=== PATIENT | male | born 1960 | race Caucasian/White ===

== ENCOUNTER 2016-12-16 13:58 | Emergency (ER) | payer OTHER ==
[~2016-12-16] VITALS: Ht 193 cm; Wt 101.4 kg
[2016-12-16] MEDS ORDERED: IBUP-1222 PO (14:27)
[2016-12-16] MEDS ORDERED: SODIUM CHLORIDE 0.9% 1,000ML IVBOLUS ONE (15:00)
[2016-12-16] MEDS ORDERED: SODIUM CHLORIDE FLUSH 10ML SYR IVF ONE (15:00)
[2016-12-16] MEDS ORDERED: VANCOMYCIN 2,000 MG in SODIUM CHLORIDE 0.9% 500 ML IV ONE (15:00)
[2016-12-16] MEDS ORDERED: VANCOMYCIN PER PHARMACY MC ONE (15:00)
[2016-12-16] MEDS ORDERED: KETOROLAC 30 MG/1 ML IVPush ONE (15:00)
[2016-12-16] MEDS ORDERED: KETOROLAC 30 MG/1 ML ONE (15:46)
[2016-12-16 16:01] LABS: BLOOD UREA NITROGEN 16 mg/dL (7-18)
[2016-12-16 17:38] VITALS: BP 140/86
== END 2016-12-16 17:41 | disposition home or self-care (01) ==
LOC: ED 16:28
DX: M71.162 Other infective bursitis, left knee (principal); F17.200 Nicotine dependence, unspecified, uncomplicated
CPT/HCPCS: 29505; 36415; 73564; 80048; 82040; 85025; 93971; 96365; 96366; 96375; 99285; J1885; J3370; J7030; J7040

== ENCOUNTER 2016-12-17 19:21 | Inpatient (IN) | payer OTHER ==
[~2016-12-17] VITALS: Ht 193 cm; Wt 110.0 kg
[~2016-12-17 19:21] MED LIST: IBUP-1222 PO
[2016-12-17] MEDS ORDERED: OXYcodone/APAP 5/325MG TABLET ONE (20:23)
[2016-12-17] MEDS ORDERED: LIDOCAINE 1%, 20ML ONE (20:23)
[2016-12-17] MEDS ORDERED: LIDOCAINE 1%, 20ML SQ ONE (20:30)
[2016-12-17] MEDS ORDERED: SODIUM CHLORIDE FLUSH 10ML SYR IVF ONE (20:30)
[2016-12-17] MEDS ORDERED: VANCOMYCIN PER PHARMACY IV ONE (20:30)
[2016-12-17] MEDS ORDERED: VANCOMYCIN 2,000 MG in SODIUM CHLORIDE 0.9% 500 ML IV ONE (20:30)
[2016-12-17] MEDS ORDERED: OXYcodone/APAP 5/325MG TABLET PO ONE (20:30)
[2016-12-17] MEDS ORDERED: HYDROmorphone 2 MG/ML, 1ML IVPush PRN (23:00)
[2016-12-17] MEDS ORDERED: TEMAZEPAM 15 MG CAPSULE PO PRN (23:00)
[2016-12-17] MEDS ORDERED: VANCOMYCIN PER PHARMACY MC PRN (23:00)
[2016-12-17] MEDS ORDERED: POLYETHYLENE GLYCOL 17 GM PACKET PO PRN (23:00)
[2016-12-17] MEDS ORDERED: IBUPROFEN 600 MG TABLET PO PRN (23:00)
[2016-12-17] MEDS ORDERED: ONDANSETRON ODT 4 MG PO PRN (23:00)
[2016-12-17] MEDS ORDERED: ENALAPRILAT 1.25 MG/ML, 2ML IVPush PRN (23:00)
[2016-12-17 23:10] VITALS: BP 128/78
[2016-12-17] MEDS ORDERED: PHARMACOKINETIC MONITORING MC PRN (23:30)
[2016-12-18] MEDS: SODIUM CHLORIDE 0.9% 1,000 ML IV SCH ×2 (00:47→19:54)
[2016-12-18 05:26] VITALS: BP 107/65
[2016-12-18 06:22] LABS: BLOOD UREA NITROGEN 18 mg/dL (7-18)
[2016-12-18] MEDS ORDERED: VANCOMYCIN 2,000 MG in SODIUM CHLORIDE 0.9% 250 ML IV SCH (09:00)
[2016-12-18] MEDS: VANCOMYCIN 2,000 MG in SODIUM CHLORIDE 0.9% 500 ML IV SCH ×2 (09:07→21:12)
[2016-12-18 09:11] VITALS: BP 124/77
[2016-12-18] MEDS: ENOXAPARIN 40 MG/0.4 ML SQ SCH (12:18)
[2016-12-18 14:10] VITALS: BP 140/79
[2016-12-18] MEDS: NICOTINE 21 MG/24 HR PATCH.TD24 TD SCH (15:36)
[2016-12-18 19:57] VITALS: BP 130/75
[2016-12-18] MEDS ORDERED: NICOTINE 21 MG/24 HR PATCH.TD24 TD SCH (20:00)
[2016-12-18] MEDS ORDERED: ACETAMINOPHEN 325 MG TABLET PO PRN (20:30)
[2016-12-18] MEDS: DOCUSATE 100 MG CAPSULE PO SCH (21:13)
[2016-12-19 03:00] VITALS: BP 115/62
[2016-12-19] MEDS: SODIUM CHLORIDE 0.9% 1,000 ML IV SCH ×3 (06:00→20:55)
[2016-12-19 08:17] VITALS: BP 141/80
[2016-12-19] MEDS: DOCUSATE 100 MG CAPSULE PO SCH ×2 (09:33→20:54)
[2016-12-19] MEDS: VANCOMYCIN 2,000 MG in SODIUM CHLORIDE 0.9% 500 ML IV SCH ×2 (09:37→20:54)
[2016-12-19] MEDS: ENOXAPARIN 40 MG/0.4 ML SQ SCH (12:00)
[2016-12-19 14:54] VITALS: BP 144/90
[2016-12-19] MEDS: NICOTINE 21 MG/24 HR PATCH.TD24 TD SCH ×2 (15:50→22:32)
[2016-12-19] MEDS ORDERED: cloniDINE/PF 100 MCG/ML, 10 ML ONE (18:38)
[2016-12-19] MEDS ORDERED: MIDAZOLAM 1 MG/ML, 2ML ONE (18:38)
[2016-12-19] MEDS ORDERED: BUPIVACAINE/PF 0.25% ONE (18:38)
[2016-12-19] MEDS ORDERED: FENTANYL PF 100 MCG/2ML ONE ×2 (18:38→19:50)
[2016-12-19] MEDS ORDERED: ONDANSETRON 2MG/ML, 2ML ONE (18:48)
[2016-12-19] MEDS ORDERED: METOCLOPRAMIDE 5 MG/ML, 2ML ONE (18:48)
[2016-12-19] MEDS ORDERED: PROPOFOL 10 MG/ML, 20ML ONE (18:48)
[2016-12-19] MEDS ORDERED: ACETAMINOPHEN 325 MG TABLET PO PRN (19:30)
[2016-12-19] MEDS ORDERED: OXYcodone 5 MG/5 ML ORAL.SOL UDC PO PRN (19:30)
[2016-12-19] MEDS ORDERED: hydrALAzine 20 MG/ML, 1ML IV PRN (19:30)
[2016-12-19] MEDS ORDERED: LABETALOL 5MG/ML, 20ML IV PRN (19:30)
[2016-12-19] MEDS ORDERED: MEPERIDINE/PF 25MG/0.5ML IVPush PRN (19:30)
[2016-12-19] MEDS ORDERED: HYDROmorphone 1 MG/ML, 1ML IV PRN (19:30)
[2016-12-19] MEDS ORDERED: ONDANSETRON 2MG/ML, 2ML IVPush PRN (19:30)
[2016-12-19] MEDS ORDERED: PROMETHAZINE 25 MG/ML, 1ML IV PRN (19:30)
[2016-12-19] MEDS ORDERED: OXYcodone 5 MG/5 ML ORAL.SOL UDC ONE ×2 (19:49→19:50)
[2016-12-19] MEDS ORDERED: ACETAMINOPHEN 650 MG/20.3 ML UDC ONE (19:50)
[2016-12-19] MEDS: FENTANYL PF 100 MCG/2ML IV PRN ×2 (19:51→20:01)
[2016-12-19 20:52] VITALS: BP 129/85
[2016-12-20 00:32] VITALS: BP 105/51
[2016-12-20 03:26] VITALS: BP 119/78
[2016-12-20] MEDS ORDERED: LACTATED RINGERS 1,000 ML IV SCH (03:30)
[2016-12-20] MEDS: SODIUM CHLORIDE 0.9% 1,000 ML IV SCH (04:38)
[2016-12-20 07:00] VITALS: BP 114/72
[2016-12-20] MEDS: DOCUSATE 100 MG CAPSULE PO SCH (09:08)
[2016-12-20] MEDS: VANCOMYCIN 2,000 MG in SODIUM CHLORIDE 0.9% 500 ML IV SCH (09:08)
[2016-12-20 12:27] VITALS: BP 149/86
[2016-12-20] MEDS: ENOXAPARIN 40 MG/0.4 ML SQ SCH (13:48)
[2016-12-20] MEDS ORDERED: DAPTOMYCIN 650 MG in SODIUM CHLORIDE 0.9% 100 ML IVPB SCH (14:00)
[2016-12-20] MEDS ORDERED: HYDR-882 PO (16:29)
== END 2016-12-20 17:25 | disposition home or self-care (01) | DRG 501 ==
LOC: ED 20:48 → EDIP 21:50 → 4NOR 23:05
PROVIDERS: ADMIT Internal Medicine; ATTEND Internal Medicine
PROC: 0S9D3ZZ Drainage of Left Knee Joint, Percutaneous Approach (ICD-10-PCS; 2016-12-19)
PROC: 0MBP0ZZ Excision of Left Knee Bursa and Ligament, Open Approach (ICD-10-PCS; principal; 2016-12-19 20:00)
PROC: 02HV33Z Insertion of Infusion Device into Superior Vena Cava, Percutaneous Approach (ICD-10-PCS; 2016-12-20)
PROC: B5181ZA Fluoroscopy of Superior Vena Cava using Low Osmolar Contrast, Guidance (ICD-10-PCS; 2016-12-20)
PROC: B548ZZA Ultrasonography of Superior Vena Cava, Guidance (ICD-10-PCS; 2016-12-20)
DX: M70.42 Prepatellar bursitis, left knee (principal); L03.116 Cellulitis of left lower limb; F17.210 Nicotine dependence, cigarettes, uncomplicated; E78.5 Hyperlipidemia, unspecified; M25.462 Effusion, left knee; B95.62 Methicillin resistant Staphylococcus aureus infection as the cause of diseases classified elsewhere; Z86.14 Personal history of Methicillin resistant Staphylococcus aureus infection
CPT/HCPCS: 36415; 36569; 76937; 77001; 80048; 80061; 80202; 82550; 84550; 85025; 85651; 86140; 87040; 87070; 87075; 87077; 87147; 87186; 87205; 89051; 96365; 96366; 96375; J0878; J1650; J2250; J2405; J2704; J3010; J3370; J3490; C1751; J0735; J2765; J7030; J7040; J7120

== ENCOUNTER → 2017-01-14 | Outpatient (CLI) | payer OTHER ==
[~2017-01-14] MED LIST changes: +HYDR-882 PO
== END | disposition home or self-care (01) ==
LOC: LAB 12:05
PROVIDERS: ATTEND Internal Medicine Infectious Disease
DX: J98.4 Other disorders of lung (principal); J82 Pulmonary eosinophilia, not elsewhere classified
CPT/HCPCS: 71020

== ENCOUNTER 2017-10-27 11:04 | Emergency (ER) | payer OTHER ==
[~2017-10-27] VITALS: Ht 193 cm; Wt 99.7 kg
[2017-10-27 11:05] VITALS: BP 146/75
[2017-10-27] MEDS ORDERED: KETOROLAC 30 MG/1 ML IM ONE (11:30)
[2017-10-27] MEDS ORDERED: KETOROLAC 30 MG/1 ML ONE (11:31)
== END 2017-10-27 11:59 | disposition home or self-care (01) ==
LOC: ED 11:50
DX: S39.012A Strain of muscle, fascia and tendon of lower back, initial encounter (principal); X58.XXXA Exposure to other specified factors, initial encounter; Y93.89 Activity, other specified; Y92.89 Other specified places as the place of occurrence of the external cause; Y99.8 Other external cause status
CPT/HCPCS: 96372; 99283; J1885